=== PATIENT | female | born 1990 | race Caucasian/White ===

== ENCOUNTER 2020-12-18 11:52 | Emergency (ER) | payer OTHER ==
[2020-12-18] MEDS ORDERED: CYCLOBENZAPRINE10 MG PO (13:12)
== END 2020-12-18 14:00 | disposition home or self-care (01) ==
LOC: ER1 11:52
DX: S16.1XXA Strain of muscle, fascia and tendon at neck level, initial encounter (principal); S00.93XA Contusion of unspecified part of head, initial encounter; V43.52XA Car driver injured in collision with other type car in traffic accident, initial encounter
CPT/HCPCS: 70450; 72125; 72128; 99284